=== PATIENT | male | born 1995 | race Hispanic/Latino ===

== ENCOUNTER 2021-06-25 10:16 | Emergency (ER) | payer SELFPAY ==
[2021-06-25 10:17] VITALS: BP 128/78; PULSE 57; RESP 14; TEMP 36.2; O2SAT 99; BMI 27.4
--- NOTE | 2021-06-25 10:27 | ED.RN ---
visitor at bedside is able to interpret, pt has minimal togolese.
--- NOTE | 2021-06-25 12:08 | EX.ED.GENINJ ---
HPI History of Present Illness Chief Complaint: Laceration Informant: patient and friend Narrative Narrative: Patient cut his right ring and index finger with a snuff box finisher accidentally today. Bleeding is controlled. He states his tetanus is up-to-date a few years ago. He states that the cut in his right index is a little deeper. PFSH PFSH Medical History no medical history Allergy/AdvReac Type Severity Reaction Status Date / Time No Known Allergies Allergy Verified 06/25/21 10:19 Surgical History no surgical history Social History Smoking Status: Never smoker ROS ROS ED Constitutional Constitutional ED: Denies fever(s) Gastrointestinal Gastrointestinal: Denies nausea or vomiting Integumentary Reports other Details: Laceration. Neurologic Neurologic: Denies paresthesias Hematologic/Lymphatic Hematologic/Lymphatic: Denies easy bleeding or easy bruising EXAM Physical Exam Const Vital Signs: 06/25/21 10:17 Temperature 97.1 F L Temperature Source Temporal Pulse Rate 57 L Respiratory Rate 14 Blood Pressure 128/78 H Blood Pressure Mean 94 Pulse Ox 99 Oxygen Delivery Method Room Air Positive well nourished and well developed General Appearance ED: well developed and NAD HEENT atraumatic Resp normal respiratory effort Extremity Extremity Narrative: Patient has a 1 cm laceration to the very distal tip of his right ring finger. I cleaned and scrubbed this. I really cannot get it to open up more than a half a millimeter. There is really nothing that I can suture. We scrubbed in to soak the right index finger. There is a tiny little flap of tissue but it does not even go into the subcutaneous area. I again soaked and scrubbed this. I tried to pull this apart and I cannot get it to open. Fully normal tendon function. Neuro Neuro Narrative: No decreased function. Strength and range of motion is normal. Sensorium / Orientation: alert MDM MDM MDM Narrative Medical decision making narrative: Tetanus is up-to-date. After scrubbing and cleansing and pulling on these I cannot get them to open. I do not think they warrant suturing. I did put Dermabond on them just provide some closure for them to keep them clean. We discussed reasons to follow-up and care of these wounds. Discharge Plan Triage Chief Complaint: Laceration ED Provider: Jose Goodwin Dx/Rx/DC Orders Clinical Impression: Laceration of finger of right hand Instructions: ED Laceration Small or ... Primary Care Provider: Care Physician,No Primary Referrals: Emilie Ocampo MD [STAFF PHYSICIAN] - 1 Week if not improving Care Physician,No Primary [Primary Care Provider] - Disposition Disposition: Home, Self Care
[2021-06-25 12:27] VITALS: PULSE 64; RESP 15; O2SAT 99
== END 2021-06-25 12:28 | disposition home or self-care (01) ==
PROVIDERS: Emergency Provider Emergency Medicine; Visit Provider Emergency Medicine
DX: S61.214A Laceration without foreign body of right ring finger without damage to nail, initial encounter (principal); S61.210A Laceration without foreign body of right index finger without damage to nail, initial encounter; W26.8XXA Contact with other sharp object(s), not elsewhere classified, initial encounter
CPT/HCPCS: 12001; 99283